=== PATIENT | female | born 1985 | race Caucasian/White ===

== ENCOUNTER 2019-10-03 22:09 | Observation (INO) | payer OTHER ==
[~2019-10-03] VITALS: Ht 170.2 cm; Wt 92.0 kg
--- NOTE | 2019-10-03 22:39 | PHYS DOC ---
General Adult EDM: Chief Complaint: BACK PAIN - NO INJURY HPI: HPI: "..I was lifting weight yesterday ... maybe I hurt my back...."..I was doing cling jerks at gym ..only 100 lbs......yesterday.. maybe I torn something..." " all I know.. I started hurting to day...hurting today.. mainly in my right ches t.. it hurts to take deep breath.. I seem a little short of breath..." Patient is a 34 year old female dependent who presents with above hx and complaints of chest wall pain. Pain started this morning and seemed to progress throughout the day. Some localization over right posterior chest wall.. No history of fever or chills. No history of specific ill contacts. No history immunosuppression. Patient is up-to-date with vaccinations. No history of DVTs or pulmonary embolisms with her or family members. Patient does not smoke. Patient is on control. Possible trauma from doing cling jerk with weights. This is however part to her routine weight lifting. No history of coagulopathy or bleeding. Patient had 2 childbirths that she did not have excessive bleeding. 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 Review of Systems: Review of Systems: Constitutional: Denies fever or chills Eyes: Denies change in visual acuity HENT: Denies nasal congestion or sore throat Respiratory: Denies cough or shortness of breath Cardiovascular: Complains of chest wall pain . GI: Denies abdominal pain, nausea, vomiting, bloody stools or diarrhea : Denies dysuria Musculoskeletal: Denies back pain or joint pain Integument: Denies rash Neurologic: Denies headache, focal weakness or sensory changes Endocrine: Denies polyuria or polydipsia Lymphatic: Denies swollen glands Psychiatric: Denies depression or anxiety Heart Score: HEART Score for Chest Pain: HEART Score for Chest Pain Response (Comments) Value History Slighlty/Non-Suspicious 0 ECG Normal 0 Age < 45 0 Risk Factors No Risk Factors 0 Troponin < Normal Limit 0 Total 0 Risk Factors: Risk Factors: DM, Current or recent (<one month) smoker, HTN, HLP, family history of CAD, obesity. Risk Scores: Score 0 - 3: 2.5% MACE over next 6 weeks - Discharge Home Score 4 - 6: 20.3% MACE over next 6 weeks - Admit for Clinical Observation Score 7 - 10: 72.7% MACE over next 6 weeks - Early Invasive Strategies Family History: Family History: Noncontributory to presentation Current Medications: Current Meds: See nursing for home meds Allergies: Allergies: Allergies Coded Allergies Type Severity Reaction Last Updated Verified No Known Drug Allergies 10/03/19 No Physical Exam: PE: Constitutional: Well developed, well nourished, moderate acute distress, non- toxic appearance. [] HENT: Normocephalic, atraumatic, bilateral external ears normal, oropharynx m oist, no oral exudates, nose normal. [] Eyes: PERRLA, EOMI, conjunctiva normal, no discharge. [] Neck: Normal range of motion, no tenderness, supple, no stridor. [] Cardiovascular:Heart rate regular rhythm, no murmur [] Lungs & Thorax: Bilateral breath sounds equal at apex on auscultation []. Does have some rub on posterior right chest wall. Some basilar crackles bilaterally posterior. Abdomen: Bowel sounds normal, soft, no tenderness, no masses, no pulsatile masses. [] Skin: Warm, diaphoretic, no erythema, no rash. [] Back: Lower bilateral chest wall tenderness, right flank CVA tenderness. [] Extremities: No tenderness, no cyanosis, no clubbing, ROM intact, no edema. No cording appreciated. Neurologic: Alert and oriented X 3, normal motor function, normal sensory function, no focal deficits noted. [] Psychologic: Affect anxious, judgement normal, mood normal. [] EKG: EKG: My interpretation of EKG shows a sinus rhythm at 81 bpm. No findings of acute STEMI with contralateral changes. [] Radiology/Procedures: Radiology/Procedures: [][address] [address] IMAGING REPORT Signed PATIENT: RJ LOPEZ ACCOUNT: [id number] : 1985 LOCATION: ER AGE: 34 SEX: F EXAM STATUS: REG ER ORD. PHYSICIAN: MIKAYLA NICHOLS MD REASON: Chest wall pain, dyspnea, OMNI 350, 100ml PROCEDURE: CT ANGIOGRAPHY CHEST EXAM: CT chest with contrast - pulmonary embolus protocol CLINICAL HISTORY: Reason: Chest wall pain, dyspnea COMPARISON: None. TECHNIQUE: CT of the chest following the administration of intravenous contrast during the pulmonary arterial phase. Axial, coronal and sagittal reformatted images were generated including MIP images. ---PQRS compliance statement - One or more of the following individualized dose reduction techniques were utilized for this study: 1. Automated exposure control 2. Adjustment of the mA and/or kV according to patient size 3. Use of iterative reconstruction technique--- FINDINGS: CHEST: Diagnostic quality: Evaluation for acute pulmonary embolus is limited given suboptimal contrast bolus and motion artifact. Pulmonary emboli: A filling defect is suspected within a distal right lower lobe subsegmental pulmonary arterial branch (series 8 image 88) as well as a left lower lobe subsegmental branch (series 8 image 100) suspicious for pulmonary emboli although given contrast bolus limitations above, accurate assessment is limited. Right heart strain: None Pulmonary arteries: Normal in caliber. Heart is not enlarged. No pericardial effusion. No pleural effusion or pneumothorax. Wedge-shaped parenchymal opacities in the right lower lobe may represent consolidative process although atypical appearance of pulmonary infarct is also a consideration. Groundglass opacities in the peripheral left lower lobe may represent atelectasis or developing consolidation or early changes of pulmonary infarct. A 6 mm left lower lobe lung nodule (series 8 image 120) is seen. No pleural effusion or pneumothorax. Visualized Upper abdomen: Grossly unremarkable. Bones: No aggressive osseous lesion is seen. IMPRESSION: 1. Evaluation for acute pulmonary embolus is limited given suboptimal contrast bolus and motion artifact. Within these constraints, pulmonary emboli are suspected within the distal right lower lobe and left lower lobe subsegmental branches. 2. Parenchymal opacities in the lower lobes bilaterally are prominently wedge-shaped and parietal infarct as well as consolidation may have this appearance. Electronically signed by: Abisai Moise MD (10/04/2019 12:07 AM) [facility] DICTATED AND SIGNED BY: ABISAI MOISE MD DATE: 10/04/19 0007 CC: MIKAYLA NICHOLS MD; PCP,NO ~ Course & Med Decision Making: Course & Med Decision Making Pertinent Labs and Imaging studies reviewed. (See chart for details) Patient admitted to Dr. Jett and Dr. Kohli service. Cover for atypical pneumonia. Lovenox to start anti coagulative. Impression: 1. Chest wall pain 2. Suspect PE 3. Elevated D-dimer 3.69 [] eKron Disclaimer: Keron Disclaimer: This electronic medical record was generated, in whole or in part, using a voice recognition dictation system. Departure Departure: Disposition: 01 HOME/RESIDENCE PRIOR TO ADM Condition: STABLE Referrals: PCP,NO (PCP) Keron Disclaimer This chart was dictated in whole or in part using Voice Recognition software in a busy, high-work load, and often noisy Emergency Department environment. It may contain unintended and wholly unrecognized errors or omissions. MIKAYLA NICHOLS MD October 03, 2019 22:39
[2019-10-03] MEDS ORDERED: ORPHENADRINE CITRATE 60 MG/2 ML VIAL. IV ONE (23:15)
[2019-10-03] MEDS ORDERED: KETOROLAC 30 MG/ML VIAL. IVP ONE (23:15)
[2019-10-03 23:20] LABS: CLARITY,URINE CLEAR; COLOR,URINE YELLOW
[2019-10-03 23:21] LABS: BILIRUBIN,URINE NEG (NEG); GLUCOSE,URINE NEG (NEG)
[2019-10-03 23:22] LABS: NITRITE,URINE NEG (NEG); UROBILINOGEN,URINE 0.2 mg/dL (0.2 mg/dL)
[2019-10-03 23:23] LABS: BACTERIA,URINE FEW /HPF (0-FEW); SQUAMOUS EPITHELIAL CELL,UR MANY /LPF
[2019-10-03 23:24] LABS: BARBITURATES NEG (NEG); BENZODIAZEPINES NEG (NEG); CANNABINOIDS NEG (NEG); COCAINE NEG (NEG); METHADONE NEG (NEG); OPIATES NEG (NEG); PHENCYCLIDINE NEG (NEG)
[2019-10-03 23:29] LABS: AMPHETAMINE/METHAMPHETAMINE NEG (NEG)
[2019-10-03] MEDS ORDERED: IOHEXOL 350 MG/ML 100 ML VIAL. IV ONE (23:30)
[2019-10-03] MEDS ORDERED: CONTRAST GIVEN MC PRN (23:30)
--- NOTE | 2019-10-04 00:10 | RAD ---
EXAM: CT chest with contrast - pulmonary embolus protocol CLINICAL HISTORY: Reason: Chest wall pain, dyspnea COMPARISON: None. TECHNIQUE: CT of the chest following the administration of intravenous contrast during the pulmonary arterial phase. Axial, coronal and sagittal reformatted images were generated including MIP images. ---PQRS compliance statement - One or more of the following individualized dose reduction techniques were utilized for this study: 1. Automated exposure control 2. Adjustment of the mA and/or kV according to patient size 3. Use of iterative reconstruction technique--- FINDINGS: CHEST: Diagnostic quality: Evaluation for acute pulmonary embolus is limited given suboptimal contrast bolus and motion artifact. Pulmonary emboli: A filling defect is suspected within a distal right lower lobe subsegmental pulmonary arterial branch (series 8 image 88) as well as a left lower lobe subsegmental branch (series 8 image 100) suspicious for pulmonary emboli although given contrast bolus limitations above, accurate assessment is limited. Right heart strain: None Pulmonary arteries: Normal in caliber. Heart is not enlarged. No pericardial effusion. No pleural effusion or pneumothorax. Wedge-shaped parenchymal opacities in the right lower lobe may represent consolidative process although atypical appearance of pulmonary infarct is also a consideration. Groundglass opacities in the peripheral left lower lobe may represent atelectasis or developing consolidation or early changes of pulmonary infarct. A 6 mm left lower lobe lung nodule (series 8 image 120) is seen. No pleural effusion or pneumothorax. Visualized Upper abdomen: Grossly unremarkable. Bones: No aggressive osseous lesion is seen. IMPRESSION: 1. Evaluation for acute pulmonary embolus is limited given suboptimal contrast bolus and motion artifact. Within these constraints, pulmonary emboli are suspected within the distal right lower lobe and left lower lobe subsegmental branches. 2. Parenchymal opacities in the lower lobes bilaterally are prominently wedge-shaped and parietal infarct as well as consolidation may have this appearance. Electronically signed by: Abisai Be MD (10/04/2019 12:07 AM) [facility]
[2019-10-04] MEDS ORDERED: IV RINGERS SOLUTION,LACTATED 1,000 ML IV SCH (00:13)
[2019-10-04] MEDS ORDERED: ENOXAPARIN ** NOTE DOSE ** SYRINGE SQ ONE (00:15)
[2019-10-04] MEDS ORDERED: AZITHROMYCIN 250 MG TABLET. PO ONE (00:15)
[2019-10-04 00:30] LABS: BASO # 0.1 x10^3/uL (0.0-0.2); BASO % 1 % (0-3); EOS # 0.2 x10^3/uL (0.0-0.7); EOS % 2 % (0-3); HEMATOCRIT 42.2 % (36.0-47.0); HEMOGLOBIN 14.3 g/dL (12.0-15.5); LYMPH % 18 % (24-48); MEAN CORPUSCULAR HEMOGLOBIN 32 pg (25-35); MEAN CORPUSCULAR HGB CONC 34 g/dL (31-37); MEAN CORPUSCULAR VOLUME 95 fL (79-100); MONO # 0.9 x10^3/uL (0.0-1.1); MONO % 8 % (0-9); NEUT # 7.5 x10^3uL (1.8-7.7); NEUT % 71 % (31-73); PLATELET COUNT 245 x10^3/uL (140-400); RED BLOOD COUNT 4.46 x10^6/uL (3.50-5.40); RED CELL DISTRIBUTION WIDTH 12.9 % (11.5-14.5); WHITE BLOOD COUNT 10.6 x10^3/uL (4.0-11.0)
[2019-10-04 00:31] LABS: CALCIUM 9.1 mg/dL (8.5-10.1); GFR 63.9; POTASSIUM 3.7 mmol/L (3.5-5.1)
[2019-10-04 00:43] LABS: ALBUMIN 3.7 g/dL (3.4-5.0); DIRECT BILIRUBIN 0.1 mg/dL (0.0-0.2); MAGNESIUM 1.9 mg/dL (1.8-2.4); TOTAL BILIRUBIN 0.3 mg/dL (0.2-1.0); TOTAL PROTEIN 7.4 g/dL (6.4-8.2)
--- NOTE | 2019-10-04 01:04 | RAD ---
EXAM: PA and Lateral Views of the Chest DATE: 10/04/2019 12:13 AM INDICATION: Chest pain COMPARISON: CT October 03, 2019 11:03:00 PM FINDINGS: The heart is not enlarged. Mediastinal and hilar contours are normal. Subtle patchy opacities in the lung bases better assessed on prior CT No pleural effusion or pneumothorax. IMPRESSION: Subtle patchy opacities in the lung bases better assessed on prior CT Electronically signed by: Abisai Be MD (10/04/2019 1:01 AM) [facility]
[2019-10-04] MEDS ORDERED: KETOROLAC 30 MG/ML VIAL. IVP PRN (01:15)
[2019-10-04] MEDS ORDERED: ACETAMINOPHEN 325 MG TABLET PO PRN (01:15)
[2019-10-04] MEDS ORDERED: ONDANSETRON PF 4 MG/2 ML VIAL. IVP PRN (01:15)
[2019-10-04 01:53] VITALS: BP 160/83
[2019-10-04] MEDS ORDERED: ETON1VAG VG (02:38)
[2019-10-04] MEDS: IPRATRPIUM/ALBUTEROL 0.5/2.5MG 3 ML NEBU. NEB SCH ×2 (05:20→09:33)
[2019-10-04 05:24] VITALS: BP 123/75
--- NOTE | 2019-10-04 05:38 | EKG ---
[address] [address] Test Date: 2019-10-04 Test Time: 00:28:00 Pat Name: RJ LOPEZ Department: Room: 105 A Gender: F Resolution Specialist: : 1985 Requested By: MIKAYLA NICHOLS Order Number: [id number] Reading MD: Tyrell Abreu MD Measurements Intervals [place] Rate: 81 P: 62 ME: 142 QRS: 27 QRSD: 96 T: 23 QT: 398 QTc: 463 Interpretive Statements SINUS RHYTHM Electronically Signed On 10-05-2019 12:22:25 CDT by Tyrell Abreu MD
[2019-10-04] MEDS ORDERED: ANTI-COAG MONITOR BY PHARMACY. MC PRN (08:00)
[2019-10-04] MEDS ORDERED: MORPHINE SULFATE 4 MG/ML DISP.SYRIN. IV ONE (09:45)
[2019-10-04] MEDS ORDERED: ENOXAPARIN ** NOTE DOSE ** SYRINGE SQ SCH (10:00)
[2019-10-04] MEDS ORDERED: RIVAROXABAN 15 MG TABLET. PO SCH ×3 (10:00→10:15)
[2019-10-04 10:06] VITALS: BP 117/72
--- NOTE | 2019-10-04 10:28 | DS ---
DATE OF DISCHARGE: 10/04/2019 ATTENDING PHYSICIAN: Dr. Hsu. FINAL DISCHARGE DIAGNOSES: 1. Acute pulmonary emboli, subsegmental levels of right lower lobe and left lower lobe. 2. Pleuritic chest pain, mild. HISTORY AND PHYSICAL: This is a pleasant 34-year-old female, otherwise healthy. She is on oral contraceptives. No recent travel or prolonged stays. No plane rides. She developed back pain and pleuritic chest wall pain. CT angiogram in the ED showed evidence of bilateral pulmonary emboli. She was admitted for evaluation and treatment. PHYSICAL EXAMINATION: Please see the dictated note. PERTINENT LABORATORY AND X-RAY STUDIES: Chemistry panel all within normal range. CBC and white count were normal. CT angiogram as noted. COURSE IN THE HOSPITAL: She was admitted and observed. Hemodynamically, she was stable. She did not require any supplemental oxygen with adequate oxygen saturations on room air. One initial dose of Lovenox was given in the ED. When I saw her the next day, she was ready for discharge. I recommended at this time, Xarelto 15 mg p.o. b.i.d. for 3 weeks and then 20 mg daily thereafter for a total duration of 6 months. She will follow up with her new PCP when she moves to the [facility]. I wrote scripts for Percocet 7.5 mg 1 p.o. q.6 hours p.r.n. pain. Regarding control pills, it is okay now to continue that, but after her course of treatment, she may want to consider a different oral contraceptives. She was discharged then in stable condition with very much explicit instruction for followup care. MIGDALIA HSU MD DR: SATISH/elsi JOB#: [id number] / [id number]
--- NOTE | 2019-10-04 10:51 | HP ---
ADMIT DATE: 10/04/2019 CHIEF COMPLAINT: Back pain, little short of breath. HISTORY OF PRESENT ILLNESS: This is a pleasant 34-year-old healthy white female ____ dependent with new onset of chest wall pain. She denied any recent trauma. She has been doing a lot of desk work. She is on oral contraceptives. There is no previous history of DVTs or pulmonary embolus. She had a spiral CT which showed 2 small wedge-shaped lesions in the bases on both sides, right and left. She was given a dose of Lovenox. She was admitted for further treatment regarding her new-onset pulmonary embolus. There is no recent travel. She is on oral contraceptives. PAST MEDICAL HISTORY: Unremarkable. She has had 2 childbirths, no excessive bleeding. She is in the process of moving to [place] in 3 weeks. ALLERGIES: She has no recorded drug allergies. SOCIAL HISTORY: Nonsmoker, nondrinker. FAMILY HISTORY: Mom and dad are both in their late 50s, 58 and 59 respectively and healthy. She is , 2 children, ages 6 and 3, in good health. REVIEW OF SYSTEMS: Unremarkable for any recent fevers, chills, cough, congestion, trauma, injuries, or prolonged bedrest or car rides. The rest of the detailed review of systems ____ the patient, determined to be negative. PHYSICAL EXAMINATION: GENERAL: When I saw her, this is a pleasant young female. INITIAL VITAL SIGNS: Showed a blood pressure 123/75, pulse was 52 and regular. She was afebrile, oxygen saturation 98% on room air. HEENT: Head is without trauma. Pupils reactive. Sclerae nonicteric. Oropharynx clear. NECK: Supple, no bruits. LUNGS: Clear. CARDIOVASCULAR: Showed regular heart tones. ABDOMEN: Soft. EXTREMITIES: Without cyanosis or edema. NEUROLOGIC FINDINGS: Focally intact. Speech is fluent. PERTINENT LABORATORY AND X-RAY STUDIES: Hemoglobin is 14.3 g/dL with a white count of 10,000. Electrolytes within normal range. Cardiac enzymes are negative. CT angiogram showed pulmonary emboli suspected in the distal right lower lobe and the left lower lobe subsegmental branches, parenchymal opacities consistent with infarct. ASSESSMENT: 1. A 34-year-old female with acute bilateral pulmonary emboli, subsegmental areas. No recent trauma. Risk factors, control pills. 2. Pleurisy. PLAN: 1. Observation status from ED. 2. One dose of Lovenox administered initially. 3. We had a long discussion, we will initiate her on Xarelto with a dosage of 15 mg b.i.d. for 3 weeks and then 20 mg daily for a total of 6 months thereafter. In addition, [place] and discuss different ways of oral contraceptives. In addition, for the pleuritic chest pain, I will offer for Percocet 7.5 mg every 6 hours as needed. MIGDALIA HSU MD DR: SATISH/elsi JOB#: [id number] / [id number]
[2019-10-04] MEDS ORDERED: AZITHROMYCIN 250 MG TABLET. PO SCH (21:00)
== END 2019-10-04 11:05 | disposition home or self-care (01) ==
LOC: ER 22:09 → 1 SOUTH 10-04 01:33
PROVIDERS: ADMIT Hospitalist; ATTEND Hospitalist
DX: R07.89 Other chest pain (principal); I26.99 Other pulmonary embolism without acute cor pulmonale; R74.8 Abnormal levels of other serum enzymes; R09.1 Pleurisy; Z79.899 Other long term (current) drug therapy
CPT/HCPCS: 36415; 71046; 71275; 80048; 80076; 80307; 81001; 81025; 82550; 83735; 83880; 84484; 85025; 85379; 85610; 85730; 87040; 93005; 94640; 96372; 96374; 96375; 99285; G0238; G0378; J0456; J1650; J1885; J2270; J2360; J7120; Q9967; G0379

== ENCOUNTER 2019-10-09 08:19 | Emergency (ER) | payer OTHER ==
[~2019-10-09] VITALS: Ht 170.2 cm; Wt 92.0 kg
[~2019-10-09 08:19] MED LIST: ETON1VAG VG
--- NOTE | 2019-10-09 08:43 | PHYS DOC ---
Past History Past Medical History: Asthma Additional Past Medical Histor: PE Past Surgical History: Other Additional Past Surgical Histo: WISDOM TEETH, KNEE SX Alcohol Use: Occasionally General Adult EDM: Chief Complaint: VAGINAL BLEEDING HPI: HPI: Patient is a 34-year-old female who presents with complaint of vaginal bleeding. Patient states that she was recently admitted into the hospital for pulmonary embolism and was started on Xarelto. She had removed her NuvaRing on Saturday and she started having vaginal bleeding yesterday which has gotten heavier. She also indicates that she has had a couple of episodes of hemoptysis. Patient was instructed by [facility] to come in to be evaluated. She denies any chest pain or shortness of breath currently. She denies any abdominal pain. She does indicate that the amount of vaginal bleeding is more than what is typical for her menstrual cycles. She does indicate that she had been on the NuvaRing for years. [] Review of Systems: Review of Systems: Constitutional: Denies fever or chills Respiratory: Positive cough and hemoptysis Cardiovascular: Denies chest pain or edema GI: Denies abdominal pain, nausea, vomiting or diarrhea : Complains of vaginal bleeding Neurologic: Denies headache, focal weakness or sensory changes A full 10 point review of systems has been reviewed and is otherwise negative. Heart Score: Risk Factors: Risk Factors: DM, Current or recent (<one month) smoker, HTN, HLP, family history of CAD, obesity. Risk Scores: Score 0 - 3: 2.5% MACE over next 6 weeks - Discharge Home Score 4 - 6: 20.3% MACE over next 6 weeks - Admit for Clinical Observation Score 7 - 10: 72.7% MACE over next 6 weeks - Early Invasive Strategies Allergies: Allergies: Allergies Coded Allergies Type Severity Reaction Last Updated Verified No Known Drug Allergies 10/03/19 No Physical Exam: PE: Constitutional: Well developed, well nourished, no acute distress, non-toxic appearance. [] HENT: Normocephalic, atraumatic, bilateral external ears normal, oropharynx moist, no oral exudates, nose normal. [] Eyes: PERRLA, EOMI, conjunctiva normal, no discharge. [] Neck: Normal range of motion, no tenderness, supple, no stridor. [] Cardiovascular: Regular rate and rhythm [] Lungs & Thorax: Bilateral breath sounds clear to auscultation [] Abdomen: Bowel sounds normal, soft, no tenderness. [] Skin: Warm, dry, no erythema, no rash. [] Extremities: No tenderness, no cyanosis, no clubbing, ROM intact, no edema. [] Neurologic: Alert and oriented X 3, no focal deficits noted. [] Current Patient Data: Vital Signs: Vital Signs Date Time Temp Pulse Resp B/P (MAP) Pulse Ox O2 Delivery O2 Flow Rate FiO2 10/09/19 08:23 98.3 68 16 151/70 (97) 97 Room Air EKG: EKG: [] Radiology/Procedures: Radiology/Procedures: [] Impressions: PROCEDURE: CHEST PA & LATERAL CHEST PA LATERAL History: Reason: hemoptysis; PE on Xarelto / Spl. Instructions: / History: Comparison: October 04, 2019 Findings: No consolidation or pleural effusion. Normal heart size. No pneumothorax. Impression: 1. No acute cardiopulmonary process. Electronically signed by: Jairo Ibarra DO (10/09/2019 8:50 AM) [facility] Course & Med Decision Making: Course & Med Decision Making Pertinent Labs and Imaging studies reviewed. (See chart for details) [] Dragon Disclaimer: Dragon Disclaimer: This electronic medical record was generated, in whole or in part, using a voice recognition dictation system. Departure Departure: Impression: Primary Impression: Vaginal bleeding Additional Impression: Hemoptysis Disposition: 01 HOME/RESIDENCE PRIOR TO ADM Condition: STABLE Referrals: PCP,NO (PCP) Patient Instructions: Hemoptysis, Menorrhagia Additional Instructions: Call to schedule follow-up appointment with [facility]. Scripts No Active Prescriptions or Reported Meds JAIME CARMEN Jr., DO Oct 09, 2019 08:43
--- NOTE | 2019-10-09 08:53 | RAD ---
CHEST PA LATERAL History: Reason: hemoptysis; PE on Xarelto / Spl. Instructions: / History: Comparison: October 04, 2019 Findings: No consolidation or pleural effusion. Normal heart size. No pneumothorax. Impression: 1. No acute cardiopulmonary process. Electronically signed by: Jairo Ibarra DO (10/09/2019 8:50 AM) [facility]
[2019-10-09 09:12] LABS: BASO # 0.1 x10^3/uL (0.0-0.2); BASO % 1 % (0-3); EOS # 0.2 x10^3/uL (0.0-0.7); EOS % 3 % (0-3); HEMATOCRIT 44.5 % (36.0-47.0); HEMOGLOBIN 15.3 g/dL (12.0-15.5); LYMPH # 1.8 x10^3/uL (1.0-4.8); LYMPH % 27 % (24-48); MEAN CORPUSCULAR HEMOGLOBIN 32 pg (25-35); MEAN CORPUSCULAR HGB CONC 34 g/dL (31-37); MEAN CORPUSCULAR VOLUME 94 fL (79-100); MONO # 0.5 x10^3/uL (0.0-1.1); MONO % 7 % (0-9); NEUT # 4.3 x10^3uL (1.8-7.7); NEUT % 62 % (31-73); PLATELET COUNT 332 x10^3/uL (140-400); RED BLOOD COUNT 4.76 x10^6/uL (3.50-5.40); RED CELL DISTRIBUTION WIDTH 12.8 % (11.5-14.5); WHITE BLOOD COUNT 6.9 x10^3/uL (4.0-11.0)
[2019-10-09 09:19] LABS: CALCIUM 9.8 mg/dL (8.5-10.1); GFR 63.9; POTASSIUM 4.1 mmol/L (3.5-5.1)
[2019-10-09 09:22] LABS: ALBUMIN 3.7 g/dL (3.4-5.0); ALBUMIN/GLOBULIN RATIO 0.9 (1.0-1.7); TOTAL BILIRUBIN 0.3 mg/dL (0.2-1.0); TOTAL PROTEIN 7.9 g/dL (6.4-8.2)
[2019-10-09 10:00] VITALS: BP 118/79
== END 2019-10-09 10:02 | disposition home or self-care (01) ==
LOC: ER 08:19
DX: N93.9 Abnormal uterine and vaginal bleeding, unspecified (principal); R04.2 Hemoptysis; J45.909 Unspecified asthma, uncomplicated
CPT/HCPCS: 36415; 71046; 80053; 85025; 99284